=== PATIENT | female | born 1945 ===

== ENCOUNTER 2022-11-03 05:41 | Day surgery (SDC) | payer OTHER ==
[2022-10-29 14:40] VITALS: BMI 22.6
[2022-11-03 09:20] VITALS: RESP 16; TEMP 97.7
[2022-11-03 09:48] VITALS: BP 130/65; PULSE 85
== END 2022-11-03 09:50 | disposition home or self-care (01) ==
LOC: JASU-ENDO 05:41
PROVIDERS: ATTEND Student in an Organized Health Care Education/Training Program
PROC: 0DB78ZX Excision of Stomach, Pylorus, Via Natural or Artificial Opening Endoscopic, Diagnostic (ICD-10-PCS; 2022-11-03)
PROC: 0DB68ZX Excision of Stomach, Via Natural or Artificial Opening Endoscopic, Diagnostic (ICD-10-PCS; 2022-11-03)
PROC: 0DB28ZX Excision of Middle Esophagus, Via Natural or Artificial Opening Endoscopic, Diagnostic (ICD-10-PCS; 2022-11-03)
PROC: 0DB38ZX Excision of Lower Esophagus, Via Natural or Artificial Opening Endoscopic, Diagnostic (ICD-10-PCS; principal; 2022-11-03 13:30)
DX: K21.00 Gastro-esophageal reflux disease with esophagitis, without bleeding (principal); K29.50 Unspecified chronic gastritis without bleeding; K44.9 Diaphragmatic hernia without obstruction or gangrene
CPT/HCPCS: 82962; 88305-TC; 88342-TC